=== PATIENT | male | born 1960 | race Caucasian/White ===

== ENCOUNTER 2019-08-13 03:22 | Emergency (ER) | payer MEDICAID ==
[~2019-08-13] VITALS: Ht 182.9 cm; Wt 89.8 kg
[2019-08-13 03:26] VITALS: BP 165/97
[2019-08-13] MEDS: GENTAMICIN OP 0.3% 15 MG/5 ML BTL OP ONE (03:52)
[2019-08-13 04:09] VITALS: BP 165/97
== END 2019-08-13 04:09 | disposition home or self-care (01) ==
LOC: MED 03:22
DX: H10.9 Unspecified conjunctivitis (principal); R10.9 Unspecified abdominal pain
CPT/HCPCS: 99283